=== PATIENT | female | born 1975 | race Caucasian/White ===

== ENCOUNTER 2019-09-17 10:18 | Emergency (ER) | payer MEDICAID ==
[~2019-09-17] VITALS: Ht 170.2 cm; Wt 79.2 kg
[~2019-09-17 10:18] MED LIST: ACET325T14 PO; CLIN300C8 PO; DM/P295L11 PO
[2019-09-17] MEDS ORDERED: SODIUM CHLORIDE 0.9% 1,000ML IVBOLUS ONE (11:00)
[2019-09-17] MEDS ORDERED: DIPHENHYDRAMINE 50 MG/ML, 1ML IVPush ONE (11:00)
[2019-09-17] MEDS ORDERED: METOCLOPRAMIDE 5 MG/ML, 2ML IVPush ONE (11:00)
[2019-09-17] MEDS ORDERED: KETOROLAC 30 MG/1 ML IVPush ONE (11:00)
--- NOTE | 2019-09-17 11:06 | NUR ---
CT DELAY; HOLDING ROOM FOR CODE NEURO; BIOPSY IN OTHER ROOM
[2019-09-17] MEDS ORDERED: KETOROLAC 30 MG/1 ML ONE (11:08)
[2019-09-17] MEDS ORDERED: DIPHENHYDRAMINE 50 MG/ML, 1ML ONE (11:08)
[2019-09-17] MEDS ORDERED: METOCLOPRAMIDE 5 MG/ML, 2ML ONE (11:08)
--- NOTE | 2019-09-17 11:35 | NUR ---
PT MEDICATE FOR PAIN PER ORDERS. PT ON MONITORS, VSS. PT'S MOTHER AT BEDSIDE. PT EDUCATED ON POC, VERBALIZED UNDERSTANDING. CONT TO MONITOR.
[2019-09-17 11:38] LABS: BASOPHILS # (AUTO) 0.03 x10^3/uL (0-0.1); BASOPHILS % (AUTO) 0 % (0-1); EOSINOPHILS # (AUTO) 0.27 x10^3/uL (0-0.4); EOSINOPHILS % (AUTO) 3 % (1-7); LYMPHOCYTES # (AUTO) 2.58 x10^3/uL (1-3.4); LYMPHOCYTES % (AUTO) 32 % (22-44); MD NO; MEAN CORPUSCULAR HEMOGLOBIN 31.8 pg (27.0-34.8); MEAN CORPUSCULAR HGB CONC 33.3 g/dL (32.4-35.8); MEAN CORPUSCULAR VOLUME 95.3 fL (80-100); MEAN PLATELET VOLUME 8.7 fL (7.4-10.4); MONOCYTES % (AUTO) 6 % (2-9); NEUTROPHILS # (AUTO) 4.72 x10^3/uL (1.8-6.8); NEUTROPHILS % (AUTO) 58 % (42-75); PLATELET COUNT 350 x10^3/uL (130-400); RED BLOOD COUNT 4.41 x10^6/uL (3.82-5.3); RED CELL DISTRIBUTION WIDTH 13.8 % (9.6-15.2)
[2019-09-17 11:50] LABS: ALBUMIN 3.4 g/dL (3.4-5.0); ANION GAP 4 mmol/L (5-15); CALCIUM 8.9 mg/dL (8.5-10.1); CHLORIDE 108 mmol/L (98-107)
[2019-09-17 11:53] LABS: CREATININE 0.77 mg/dL (0.55-1.02)
--- NOTE | 2019-09-17 12:29 | NUR ---
PT STATES PAIN DECREASED, MEDICATION EFFECTIVE. PT OK FOR D/C PER ERMD. PT GIVEN D/C INSTRUCTIONS, VERBALIZED UNDERSTANDING. PT WITH STEADY GAIT UPON D/C.
[2019-09-17 12:32] VITALS: BP 135/87
== END 2019-09-17 12:33 | disposition home or self-care (01) ==
LOC: ED 10:51
DX: G44.229 Chronic tension-type headache, not intractable (principal); R41.82 Altered mental status, unspecified; F17.200 Nicotine dependence, unspecified, uncomplicated; W01.0XXA Fall on same level from slipping, tripping and stumbling without subsequent striking against object, initial encounter; Y93.89 Activity, other specified; Y92.89 Other specified places as the place of occurrence of the external cause; Y99.8 Other external cause status
CPT/HCPCS: 36415; 70450; 80048; 82040; 85025; 96361; 96374; 96375; 99284; J1200; J1885; J2765; J7030

== ENCOUNTER 2020-06-27 12:15 | Emergency (ER) | payer MEDICAID ==
[~2020-06-27] VITALS: Ht 170.2 cm; Wt 73.0 kg
[~2020-06-27 12:15] MED LIST changes: -CLIN300C8 PO; +CLIN300C9 PO
--- NOTE | 2020-06-27 12:39 | NUR ---
EMS states pt was brought in for feelings of depression and wanting help. Upon talking to pt, pt states she is unsure who called the ambulace. States she has a 10/10 Headache that she has had for 2 years. Pt States smoking meth x 1 day ago. Pt with scattered hx, difficulty to get story out of. Pt calm and cooperative in room. Pt denies having SI today, but states recently she has had feelings of harming herself by cutting her femoral arteries.
--- NOTE | 2020-06-27 13:34 | NUR ---
grandmother [phone]
[2020-06-27 14:17] VITALS: BP 128/86
--- NOTE | 2020-06-27 14:48 | NUR ---
Patient/Caregiver given discharge instructions and they have confirmed that they understand the instructions. Patient ambulatory with steady gait. Taxi voucher provided for patient.
== END 2020-06-27 14:50 | disposition home or self-care (01) ==
LOC: ED 12:40
DX: R51.9 Headache, unspecified (principal); F17.200 Nicotine dependence, unspecified, uncomplicated; Z86.39 Personal history of other endocrine, nutritional and metabolic disease
CPT/HCPCS: 99283